=== PATIENT | female | born 1935 | race Caucasian/White ===

== ENCOUNTER 2020-06-17 08:34 | Day surgery (SDC) | payer MEDICARE, BC ==
[2020-06-17] VITALS (16 sets, daily range): BP systolic 125–186; BP diastolic 62–93
[~2020-06-17] VITALS: Ht 160 cm; Wt 52.0 kg
[2020-06-17] MEDS ORDERED: normal saline 1000ml 1,000 ML IV ONE (09:20)
[2020-06-17] MEDS ORDERED: PREG300C PO (09:25)
[2020-06-17] MEDS ORDERED: HYDR-3972 PO (09:26)
[2020-06-17] MEDS ORDERED: midazolam 1 mg/ML 2ml injection ONE (10:13)
[2020-06-17] MEDS ORDERED: fentaNYL/PF 50MCG/1 ML 2ML syringe ONE (10:13)
[2020-06-17] MEDS ORDERED: gelatin sponge, absorbable (Gelfoam 12-7MM) sponge TP ONE (10:53)
[2020-06-17] MEDS ORDERED: HYDROcodone/acetaminophen 5mg/325mg tablet PO PRN (11:00)
[2020-06-17] MEDS ORDERED: HYDROcodone/acetaminophen 10/325mg tab PO PRN (11:15)
[2020-06-17] MEDS ORDERED: pregabalin 75mg capsule PO SCH (20:00)
== END 2020-06-17 13:35 | disposition home or self-care (01) ==
LOC: SSTAY O 08:34
PROVIDERS: ATTEND Radiology Vascular & Interventional Radiology
DX: R91.8 Other nonspecific abnormal finding of lung field (principal); C34.11 Malignant neoplasm of upper lobe, right bronchus or lung; I10 Essential (primary) hypertension; Z20.822 Contact with and (suspected) exposure to COVID-19; Z79.899 Other long term (current) drug therapy; Z87.891 Personal history of nicotine dependence
CPT/HCPCS: 32408; 71045; 87635; 99152; 99153; C9803; J2250; J3010; J7030; 77012

== ENCOUNTER 2020-07-06 11:54 | Day surgery (SDC) | payer MEDICARE, BC ==
[~2020-07-06] VITALS: Ht 152.4 cm; Wt 49.8 kg
[~2020-07-06 11:54] MED LIST: HYDR-3972 PO; PREG300C PO
[2020-07-06 12:15] VITALS: BP 165/69
[2020-07-06] MEDS ORDERED: normal saline 1000ml 1,000 ML IV SCH ×2 (12:20→13:20)
[2020-07-06] MEDS ORDERED: heparin sodium, porcine/PF 100unit/ml 5ML syringe ONE (12:47)
[2020-07-06] MEDS ORDERED: midazolam 1 mg/ML 2ml injection ONE (12:48)
[2020-07-06] MEDS ORDERED: fentaNYL/PF 50MCG/1 ML 2ML syringe ONE (12:48)
[2020-07-06] MEDS ORDERED: LIDOcaine 1%/PF 5ML 10 MG/ML VIAL ONE (12:48)
[2020-07-06 12:56] LABS: BASOPHILS # (AUTO) 0.1 X10'3 (0-0.2); BASOPHILS % (AUTO) 1.1 % (0-1); EOSINOPHILS # (AUTO) 0.4 X10'3 (0-0.9); EOSINOPHILS % (AUTO) 5.3 % (0-6); HEMATOCRIT 37.7 % (35.0-45.0); HEMOGLOBIN 12.7 g/dl (12.0-16.0); LYMPHOCYTES # (AUTO) 1.9 X10'3 (1.1-4.8); LYMPHOCYTES % (AUTO) 28.3 % (21-51); MEAN CORPUSCULAR HEMOGLOBIN 31.2 PG (27.0-31.0); MEAN CORPUSCULAR HGB CONC 33.5 g/dL (33.0-36.5); MEAN CORPUSCULAR VOLUME 93.1 FL (78-98); MEAN PLATELET VOLUME 8.2 FL (7.4-10.4); MONOCYTES # (AUTO) 0.5 X10'3 (0-0.9); MONOCYTES % (AUTO) 6.9 % (2-12); NEUTROPHILS % (AUTO) 58.4 % (42-75); PLATELET COUNT 260 X10'3 (140-440); RED BLOOD COUNT 4.06 X10'6 (4.20-5.60); RED CELL DISTRIBUTION WIDTH 14.7 % (11.5-14.5); WHITE BLOOD COUNT 6.8 X10'3 (4.5-11.0)
[2020-07-06 14:15] VITALS: BP 162/62
[2020-07-06 14:30] VITALS: BP 140/80
[2020-07-06 14:45] VITALS: BP 131/59
[2020-07-06 15:00] VITALS: BP 134/62
[2020-07-06 15:15] VITALS: BP 140/80
== END 2020-07-06 15:30 | disposition home or self-care (01) ==
LOC: SSTAY O 11:54
PROVIDERS: ATTEND Radiology Diagnostic Radiology
DX: C34.11 Malignant neoplasm of upper lobe, right bronchus or lung (principal); M19.90 Unspecified osteoarthritis, unspecified site; Z79.899 Other long term (current) drug therapy; Z87.891 Personal history of nicotine dependence; Z72.89 Other problems related to lifestyle; Z96.649 Presence of unspecified artificial hip joint; Z80.0 Family history of malignant neoplasm of digestive organs
CPT/HCPCS: 36415; 36561; 76937; 77001; 85025; 99152; 99153; C1769; C1788; C1894; J1642; J2250; J3010; J7030

== ENCOUNTER 2020-07-27 12:00 | Day surgery (SDC) | payer MEDICARE, BC ==
[2020-07-27] VITALS (7 sets, daily range): BP systolic 131–162; BP diastolic 67–78
[~2020-07-27] VITALS: Ht 152.4 cm; Wt 51.5 kg
[2020-07-27 12:36] LABS: BASOPHILS % (AUTO) 0.5 % (0-1); EOSINOPHILS # (AUTO) 0.2 X10'3 (0-0.9); EOSINOPHILS % (AUTO) 3.6 % (0-6); HEMATOCRIT 35.7 % (35.0-45.0); HEMOGLOBIN 11.6 g/dl (12.0-16.0); LYMPHOCYTES # (AUTO) 1.1 X10'3 (1.1-4.8); LYMPHOCYTES % (AUTO) 17.3 % (21-51); MEAN CORPUSCULAR HEMOGLOBIN 30.8 PG (27.0-31.0); MEAN CORPUSCULAR HGB CONC 32.7 g/dL (33.0-36.5); MEAN CORPUSCULAR VOLUME 94.2 FL (78-98); MONOCYTES # (AUTO) 0.5 X10'3 (0-0.9); MONOCYTES % (AUTO) 7.6 % (2-12); NEUTROPHILS # (AUTO) 4.7 X10'3 (1.8-7.7); PLATELET COUNT 277 X10'3 (140-440); RED BLOOD COUNT 3.78 X10'6 (4.20-5.60); RED CELL DISTRIBUTION WIDTH 14.5 % (11.5-14.5); WHITE BLOOD COUNT 6.7 X10'3 (4.5-11.0)
[2020-07-27] MEDS ORDERED: normal saline 1000ml 1,000 ML IV PRN (12:40)
[2020-07-27] MEDS ORDERED: DOCU-21 PO (12:48)
[2020-07-27] MEDS ORDERED: DEXA4TAB PO (12:48)
[2020-07-27] MEDS ORDERED: ONDA8TAB65 PO (12:48)
[2020-07-27] MEDS ORDERED: PANT40TA54 PO (12:48)
[2020-07-27] MEDS ORDERED: ZINC (12:48)
[2020-07-27] MEDS ORDERED: PROC10TA10 PO (12:48)
[2020-07-27] MEDS ORDERED: MIRALAX (12:48)
[2020-07-27] MEDS ORDERED: MORP-92 PO (12:48)
[2020-07-27] MEDS ORDERED: VITAMIN D (12:48)
[2020-07-27] MEDS ORDERED: LIDO30CR23 TOP (12:48)
[2020-07-27] MEDS ORDERED: zinc oxide ointment 30gm tube TP PRN (12:55)
[2020-07-27] MEDS ORDERED: FENT1PAT12 TOP (13:10)
[2020-07-27] MEDS ORDERED: fentaNYL/PF 50MCG/1 ML 2ML syringe ONE (13:22)
[2020-07-27] MEDS ORDERED: LIDOcaine 1%/PF 5ML 10 MG/ML VIAL ONE (13:22)
[2020-07-27] MEDS ORDERED: midazolam 1 mg/ML 2ml injection ONE (13:22)
[2020-07-27] MEDS ORDERED: glucagon, human recombinant 1mg kit ONE ×2 (13:22→14:04)
[2020-07-27] MEDS ORDERED: iohexol 300 MG/1 ML 50ml polymer ONE (13:23)
== END 2020-07-27 17:30 | disposition home or self-care (01) ==
LOC: SSTAY O 12:00
PROVIDERS: ATTEND Radiology Diagnostic Radiology
DX: R13.10 Dysphagia, unspecified (principal); C34.81 Malignant neoplasm of overlapping sites of right bronchus and lung; Z79.01 Long term (current) use of anticoagulants; Z90.710 Acquired absence of both cervix and uterus
CPT/HCPCS: 36415; 49440; 85025; 85610; 99152; 99153; J1610; J2250; J3010; Q9967; B4087; C1713; C1769